=== PATIENT | male | born 1960 | race Caucasian/White ===

== ENCOUNTER → 2019-04-12 | Outpatient (CLI) | payer BC ==
[2019-04-12 11:34] VITALS: BP 121/77
[2019-04-12 11:59] LABS: CREATININE 0.8 mg/dL (0.6-1.3)
[2019-04-12 13:45] VITALS: BP 144/79
[2019-04-12 14:15] VITALS: BP 144/79
== END ==
LOC: M.CT 11:00
PROVIDERS: Internal Medicine
DX: R07.89 Other chest pain (principal)

== ENCOUNTER → 2019-04-17 | Outpatient (CLI) | payer BC ==
[2019-04-17 09:41] VITALS: BP 132/78
== END ==
LOC: M.CT 08:43
DX: I25.10 Atherosclerotic heart disease of native coronary artery without angina pectoris (principal); M25.78 Osteophyte, vertebrae

== ENCOUNTER → 2019-12-21 | Outpatient (CLI) | payer BC ==
[~2019-12-21] VITALS: Ht 188 cm; Wt 111.1 kg
[2019-12-21] VITALS (9 sets, daily range): BP systolic 121–147; BP diastolic 61–82
[~2019-12-21] MED LIST: LIPITOR 40 MG T40 M1 PO; MOBIC15 MG PO; NORVASC5 M1 PO
[2019-12-21 08:46] LABS: HEMATOCRIT 46.8 % (42.0-52.0); HEMOGLOBIN 16.5 gm/dL (14.0-18.0); MCH 31.5 pg (26.0-34.0); MCHC 35.2 g/dL (28.0-37.0); MCV 89.3 fL (80.0-100.0); MPV 7.9 fl. (7.2-11.1); RBC 5.24 mil/uL (4.50-6.00); RDW-CV 12.9 % (10.5-14.5); WBC 8.9 thou/uL (4.0-11.0)
[2019-12-21 09:02] LABS: ANION GAP 8 mmol/L (7-16); BUN 15 mg/dL (7-18); CALCIUM 8.6 mg/dL (8.5-10.1); CHLORIDE 105 mmol/L (98-107); CO2 25 mmol/L (21-32); CREATININE 0.9 mg/dL (0.6-1.3); GLUCOSE 101 mg/dL (70-99); POTASSIUM 4.2 mmol/L (3.5-5.1); SODIUM 138 mmol/L (136-145)
[2019-12-21 09:05] LABS: APTT 22.2 Seconds (25.0-31.3); INR 1.1; PROTIME 11.4 Seconds (9.20-11.50)
[2019-12-21 09:07] LABS: ALBUMIN 3.6 g/dL (3.4-5.0); ALKALINE PHOSPHATASE 119 U/L (46-116); CHOLESTEROL 132 mg/dL (<200); HDL CHOLESTEROL 37 mg/dL (>40); LDL CHOLESTEROL 74 mg/dL (<100); SERUM ASSESSMENT Clear; SGOT 47 U/L (15-37); SGPT 91 U/L (30-65); TC:HDL 3.6 Ratio (Not establshd); TOTAL BILIRUBIN 0.6 mg/dL (<0.1-1.0); TOTAL PROTEIN 6.8 g/dL (6.4-8.2); TRIGLYCERIDE 107 mg/dL (<150); VLDL 21 mg/dL (<40)
--- NOTE | 2019-12-21 09:42 | EKG ---
[place] [address] ELECTROCARDIOGRAM REPORT Name: DARIUS WISEMAN Room: [facility]#: [id number] Admission: 12/21/19 Attend Phys: Sree Galindo MD Discharge: Date of : 62 Date of Service: 12/21/19911 Report #: [id number] THIS REPORT FOR: //name// [facility] Test Date: 2019-12-21 Test Time: 09:12:51 Pat Name: DARIUS WISEMAN Department: Room: Gender: Fingerprint Clerk: : 1960 Requested By: Sree Galindo Order Number: [id number] Gonzalez MD: Sree Galindo Measurements Intervals Clemons Rate: 58 P: 36 MA: 151 QRS: 28 QRSD: 111 T: 33 QT: 418 QTc: 411 Interpretive Statements Sinus rhythm Abnormal R-wave progression, early transition No previous ECG available for comparison Electronically Signed On 12-21-2019 9:41:52 CDT by Sree Galindo [email or web address] <ELECTRONICALLY SIGNED> By: Sree Galindo MD, [facility] 12/21/19940 1 1 Sree Galindo MD, FACC /EPI
--- NOTE | 2019-12-22 11:21 | CARD ---
[address] [address] CARDIAC CATH REPORT Name: DARIUS WISEMAN Room: [facility] FernandezRony#: [id number] Admission: 12/21/19 Attend Phys: Sree Galindo MD, F Discharge: Date of : 62 Report #: [id number] THIS REPORT FOR: //name// cc: Kike Marin MD, Sequita MD ~ APPROVED REPORT Study performed: 12/21/2019 08:48:33 Patient Details Patient Status: Out-Patient Room #: The patient is a 59 year-old male Event Personnel Sree Galindo Crop Picker, Angela Saldana RN Associate Financial Advisor, Nadine Garcia RTR Monitor, Savi Orellana RTR Scrub Procedures Performed Art Access - R radial artery, Left Heart Cath w/or w/o Coronaries LHC, Hemostasis with Vasc band Indication Positive stress test, Chest pain Risk Factors Arterial Hypertension, Hypercholesterolemia Admission/Lab Medications/Medications given during procedure Heparin Unfract. Procedure Narrative The patient was brought electively to the Cardiac Catheterization Laboratory and was prepped and draped in a sterile manner. The right wrist was infiltrated with 2% Lidocaine subcutaneous anesthesia. A 6F Slender [place] sheath was inserted into the right radial artery. Coronary angiography was performed using coronary diagnostic catheters. The right coronary system was accessed and visualized with a 6F JR4 catheter. The left coronary system was accessed and visualized with a 6F JL3.5 catheter. The left ventricle was accessed and visualized with a 6F Pigtail catheter. Left ventricular/Aortic Valve gradient assessed via catheter pullback. Left ventriculogram was performed in BURNETT projection. Closure device was deployed with a 6 Fr Vasc-Band Lng 27cm. The patient tolerated the procedure well and there were no complications associated with the procedure[place] [address] CARDIAC CATH REPORT Name: WISEMANDARIUS Room: [facility]#: [id number] Admission: 12/21/19 Attend Phys: Sree Galindo MD, F Discharge: Date of : 62 Report #: [id number] no hematoma. Unable to cannulate the left main artery with a JL4.0 catheter. Intraoperative Conscious Sedation Sedation start time: 09:48 Case end Time: 10:20 Fentanyl 75 mcg Versed 3 mg Fluoro Time: 6.3 minutes Dose: DAP 86601 cGycm2 1295 mGy Contrast Type and Amount: Omnipaque 110 ml Coronary Angiography The patient's coronary anatomy is right dominant. Diagnostic Cath Left Main 0% stenosis LAD 30% mid stenosis Circumflex 0% stenosis OM1 small vessel with 60% proximal stenosis Right Coronary 30% proximal stenosis Left Ventriculography The left ventricular ejection fraction is estimated to be 60-65%. Left ventricular wall motion abnormalities are not present. There is no mitral insufficiency. Hemodynamics The aortic pressure is 149/78 mmHg with a mean of 113 mmHg. The left ventricular pressure is 153/10 mmHg with a mean of mmHg. The left ventricular end diastolic pressure is 16 mmHg. There was no gradient across the aortic valve upon pullback. Pullback from the left ventricle to the aorta revealed no gradient across the aortic valve. Conclusion 1. minimal cad with a 60% stenosis noted of a small first marginal branch of the circumflex artery. 2. LVEF 60-65% 3. suspect [place] [address] CARDIAC CATH REPORT Name: DARIUS WISEMAN Room: [facility] Godoy#: [id number] Admission: 12/21/19 Attend Phys: Sree Galindo MD, F Discharge: Date of : 62 Report #: [id number] Recommendations Aggressive Medical Therapy <ELECTRONICALLY SIGNED> By: Sree Galindo MD, FAC 12/22/19 1121 1121 [id number] Galindo MD, FAC /INF
== END ==
LOC: M.CL 07:43
PROVIDERS: ATTEND Internal Medicine Cardiovascular Disease
DX: R07.9 Chest pain, unspecified (principal); I10 Essential (primary) hypertension; E78.5 Hyperlipidemia, unspecified; I25.10 Atherosclerotic heart disease of native coronary artery without angina pectoris; R94.39 Abnormal result of other cardiovascular function study; E78.00 Pure hypercholesterolemia, unspecified; G47.33 Obstructive sleep apnea (adult) (pediatric); M15.0 Primary generalized (osteo)arthritis; Z79.899 Other long term (current) drug therapy; Z98.890 Other specified postprocedural states